=== PATIENT | male | born 1985 | race Caucasian/White ===

== ENCOUNTER 2017-06-10 23:41 | Inpatient (IN) | payer MEDICAID ==
[~2017-06-10] VITALS: Ht 165.1 cm; Wt 88.6 kg
[~2017-06-10 23:41] MED LIST: OLAN10TA6 PO; PARO20TA24 PO
[2017-06-11 00:02] LABS: GLUCOSE,POINT OF CARE 117 MG/DL (70-110)
[2017-06-11] MEDS ORDERED: GABA-529 PO (00:04)
[2017-06-11] MEDS ORDERED: QUET25TA PO (00:04)
[2017-06-11 00:15] LABS: BASOPHILS % (AUTO) 0.6 % (0.0-2.0); EOSINOPHILS % (AUTO) 1.3 % (1.0-6.0); HEMATOCRIT 47.1 % (41-53); LYMPHOCYTES # (AUTO) 3.6 K/uL (1.0-4.8); LYMPHOCYTES % (AUTO) 34.4 % (22.0-44.0); MEAN CORPUSCULAR HEMOGLOBIN 30.4 pg (26.0-34.0); MEAN CORPUSCULAR HGB CONC 33.9 G/dL (31.0-37.0); MEAN CORPUSCULAR VOLUME 90 fL (80-100); MONOCYTES # (AUTO) 0.6 K/uL (0.1-1.0); MONOCYTES % (AUTO) 5.4 % (2.0-9.0); NEUTROPHILS # (AUTO) 6.1 K/uL (1.8-7.7); NEUTROPHILS % (AUTO) 58.3 % (40.0-70.0); PLATELET COUNT (AUTO) 314 K/uL (150-450); RED BLOOD CELL COUNT(AUTO) 5.26 MIL/uL (4.50-5.90); RED CELL DISTRIBUTION WIDTH 12.9 % (11.5-14.5)
[2017-06-11 00:18] LABS: ANION GAP 5 mmol/L (8-16); CALCIUM, TOTAL 8.9 mg/dL (8.8-10.5); CARBON DIOXIDE 31 mmol/L (22-29); CHLORIDE 106 mmol/L (98-107); CREATININE 0.98 mg/dL (0.60-1.30); GLOMERULAR FILTR. RATE CALC > 60 mL/min (>60); GLUCOSE,RANDOM 112 mg/dL (70-110); POTASSIUM 3.6 mmol/L (3.5-5.1); SODIUM SERUM 142 mmol/L (136-145); UREA NITROGEN, BLOOD 11 mg/dL (7-18)
[2017-06-11 00:24] LABS: ALANINE AMINOTRANSFERASE 58 U/L (12-78); ALBUMIN 4.1 g/dL (3.4-5.0); ALKALINE PHOSPHATASE 117 U/L (46-116); ASPARTATE AMINOTRANSFERASE 28 U/L (15-37); BILIRUBIN,TOTAL 0.2 mg/dL (0.1-1.0); TOTAL PROTEIN, SERUM 8.7 g/dL (6.4-8.2)
[2017-06-11] MEDS ORDERED: LIDOCAINE HCL 1%/EPI 1:200,000/PF 10 ML VIAL INJ ONE ×2 (02:00→03:30)
[2017-06-11] MEDS ORDERED: OLANZapine 5 MG RAPDIS TABLET PO PRN (03:00)
[2017-06-11] MEDS ORDERED: LORazepam 2 MG TABLET PO PRN (03:00)
[2017-06-11] MEDS ORDERED: ZOLPIDEM TARTRATE 10 MG TABLET PO PRN (03:00)
[2017-06-11 13:30] VITALS: BP 126/87
[2017-06-11] MEDS ORDERED: ACETAMINOPHEN 325 MG TABLET PO PRN (17:30)
[2017-06-11 18:19] VITALS: BP 140/89
[2017-06-12] VITALS (7 sets, daily range): BP systolic 90–132; BP diastolic 60–82
[2017-06-12] MEDS ORDERED: PROMETHAZINE HCL 25 MG TABLET PO PRN (07:00)
[2017-06-12] MEDS ORDERED: GuaiFENesin/D-METHORPHAN [SUGAR-FREE] 200-20MG/10 ML SYRUP UDCUP PO PRN (07:00)
[2017-06-12] MEDS ORDERED: TUBERCULIN, PURIFIED PROTEIN DERIVATIVE 5 TU/0.1 ML SYG ID ONE (07:00)
[2017-06-12] MEDS ORDERED: MAGNESIUM HYDROXIDE SUSPENSION 30 ML UDCUP PO PRN (07:00)
[2017-06-12] MEDS ORDERED: LOPERAMIDE HCL 2 MG CAPSULE PO PRN (07:00)
[2017-06-12] MEDS ORDERED: ACETAMINOPHEN 325 MG TABLET PO PRN ×2 (07:00→20:45)
[2017-06-12] MEDS ORDERED: HydrOXYzine PAMOATE 50 MG CAPSULE PO PRN (07:00)
[2017-06-12] MEDS ORDERED: MAG HYDROX/AL HYDROX/SIMETH ES 30 ML SUSPENSION UDCUP PO PRN (07:00)
[2017-06-12] MEDS ORDERED: LORazepam 2 MG TABLET PO PRN (07:00)
[2017-06-12 08:38] LABS: CHOL/HDL RATIO 3.8 (4.2-7.3)
[2017-06-12] MEDS: FOLIC ACID 1 MG TABLET PO SCH (09:53)
[2017-06-12] MEDS: PARoxetine HCL 10 MG TABLET PO SCH (09:54)
[2017-06-12] MEDS: NALTREXONE HCL 50 MG TABLET PO SCH (09:54)
[2017-06-12] MEDS: THIAMINE HCL 100 MG TABLET PO SCH ×2 (09:54→16:27)
[2017-06-12] MEDS: MULTIVITAMINS WITH MINERALS, THERAPEUTIC TABLET PO SCH (09:54)
[2017-06-12] MEDS: OLANZapine 5 MG RAPDIS TABLET PO SCH (20:38)
[2017-06-12] MEDS ORDERED: IBUPROFEN 400 MG TABLET PO PRN (20:45)
[2017-06-13] VITALS (9 sets, daily range): BP systolic 111–120; BP diastolic 63–94
[2017-06-13] MEDS ORDERED: LORazepam 2 MG TABLET PO PRN (07:00)
[2017-06-13] MEDS: LORazepam 2 MG TABLET PO SCH ×4 (09:52→21:00)
[2017-06-13] MEDS: MULTIVITAMINS WITH MINERALS, THERAPEUTIC TABLET PO SCH (09:52)
[2017-06-13] MEDS: THIAMINE HCL 100 MG TABLET PO SCH ×2 (09:53→18:03)
[2017-06-13] MEDS: PARoxetine HCL 10 MG TABLET PO SCH (09:53)
[2017-06-13] MEDS: FOLIC ACID 1 MG TABLET PO SCH (09:53)
[2017-06-13] MEDS: NALTREXONE HCL 50 MG TABLET PO SCH (09:53)
[2017-06-13] MEDS: OLANZapine 5 MG RAPDIS TABLET PO SCH (21:00)
[2017-06-14 06:04] VITALS: BP 114/68
[2017-06-14 06:07] VITALS: BP 114/68
[2017-06-14 09:12] VITALS: BP 117/75
[2017-06-14] MEDS: PARoxetine HCL 10 MG TABLET PO SCH (10:11)
[2017-06-14] MEDS: LORazepam 2 MG TABLET PO SCH ×2 (10:11→12:29)
[2017-06-14] MEDS: NALTREXONE HCL 50 MG TABLET PO SCH (10:11)
[2017-06-14] MEDS: FOLIC ACID 1 MG TABLET PO SCH (10:11)
[2017-06-14] MEDS: THIAMINE HCL 100 MG TABLET PO SCH (10:11)
[2017-06-14] MEDS: MULTIVITAMINS WITH MINERALS, THERAPEUTIC TABLET PO SCH (10:11)
[2017-06-14] MEDS ORDERED: NALT50TA PO (12:38)
[2017-06-14] MEDS ORDERED: OLAN5TAB30 PO (12:38)
[2017-06-14] MEDS ORDERED: OLAN5TAB40 PO (14:20)
[2017-06-14] MEDS ORDERED: NALT50TA6 PO (14:21)
[2017-06-14] MEDS ORDERED: PARO10TA89 PO (14:21)
[2017-06-15] MEDS ORDERED: LORazepam 1 MG TABLET PO PRN (07:00)
[2017-06-15] MEDS ORDERED: LORazepam 1 MG TABLET PO SCH (09:00)
[2017-06-16] MEDS ORDERED: LORazepam 1 MG TABLET PO PRN (07:00)
== END 2017-06-14 16:15 | disposition home or self-care (01) | DRG 750 ==
LOC: EMS 23:42 → 3EI 06-11 12:52
PROVIDERS: ADMIT Psychiatry & Neurology Psychiatry; ATTEND Psychiatry & Neurology Psychiatry
PROC: 0HQEXZZ Repair Left Lower Arm Skin, External Approach (ICD-10-PCS; principal; 2017-06-11)
PROC: 0HQDXZZ Repair Right Lower Arm Skin, External Approach (ICD-10-PCS; 2017-06-11)
DX: F25.9 Schizoaffective disorder, unspecified (principal); R45.851 Suicidal ideations; E11.9 Type 2 diabetes mellitus without complications; I10 Essential (primary) hypertension; E78.5 Hyperlipidemia, unspecified; F31.9 Bipolar disorder, unspecified; F10.20 Alcohol dependence, uncomplicated; S61.511A Laceration without foreign body of right wrist, initial encounter; F19.10 Other psychoactive substance abuse, uncomplicated; X78.8XXA Intentional self-harm by other sharp object, initial encounter; S61.512A Laceration without foreign body of left wrist, initial encounter; S51.811A Laceration without foreign body of right forearm, initial encounter; S51.812A Laceration without foreign body of left forearm, initial encounter; Z81.8 Family history of other mental and behavioral disorders; Z87.891 Personal history of nicotine dependence; Z91.19 Patient's noncompliance with other medical treatment and regimen; Y93.89 Activity, other specified; Y92.89 Other specified places as the place of occurrence of the external cause; Y99.8 Other external cause status
CPT/HCPCS: 12005; 82962; 93005; 99285; G0480; J3490